=== PATIENT | male | born 1990 | race American Indian/Alaskan Native ===

== ENCOUNTER 2019-08-31 18:03 | Emergency (ER) | payer SELFPAY ==
[2019-08-31 18:38] LABS: Basophils % (Auto) 0.5 % (0.0-1.8); Eosinophils # (Auto) 0.1 K/mm3 (0.0-0.4); Hematocrit 40.9 % (35.5-45.6); Hemoglobin 13.5 gm/dl (11.8-15.2); Lymphocytes # (Auto) 2.1 K/mm3 (1.2-5.4); Lymphocytes % (Auto) 28.2 % (13.4-35.0); Mean Corpuscular HGB Conc 33 % (32-34); Mean Corpuscular Volume 84 fl (84-94); Monocytes # (Auto) 1.1 K/mm3 (0.0-0.8); Monocytes % (Auto) 14.7 % (0.0-7.3); Platelet Count 172 K/mm3 (140-440); Red Blood Count 4.85 M/mm3 (3.65-5.03); Red Cell Distribution Width 15.3 % (13.2-15.2)
[2019-08-31 18:58] LABS: Bacteria,Urine 3+ /HPF (Negative); Bilirubin,Urine NEG (Negative); Blood,Urine NEG (Negative); Color,Urine Yellow (Yellow); Mucus,Urine 3+ /HPF; Sperm,Urine 1+ /HPF (NP)
[2019-08-31 18:58] LABS: Alanine Aminotransferase 34 units/L (7-56); Albumin 4.9 g/dL (3.9-5); BUN/Creatinine Ratio 21; Blood Urea Nitrogen 30 mg/dL (9-20); Calcium 10.6 mg/dL (8.4-10.2); Hemolysis Index 25
[2019-08-31 19:01] LABS: Cocaine Screen,Urine PRESUMPTIVE NEGATIVE; Methadone Screen,Urine PRESUMPTIVE NEGATIVE; Opiate Screen,Urine PRESUMPTIVE NEGATIVE
[2019-08-31] MEDS ORDERED: SODIUM CHLORIDE 0.9% 1000 ML 1,000 ML IV ONE ×2 (19:12→19:31)
--- NOTE | 2019-08-31 19:14 | Emergency Department Report ---
HPI <ELENA MORTON - Last Filed: 09/01/19 12:42> - HPI HPI: 28-year-old male presents to the emergency department via EMS from home with excited delirium and altered mental status. The patient's roommate came home and found him altered, banging his head against the wall. The roommate told EMS that he has been doing a lot of meth lately. The patient is unknown to me and apparently has never been to this emergency department previously. He received 10 mg of Versed, 5 mg of Haldol and 50 mg of Benadryl prior to arrival and presents sedated. I later was able to speak with the patient's mother and his roommate. The roommate says that he came home and found him banging his head against the wall and was not redirectable. He says that the patient does use illicit drugs, but oftentimes the patient will wake up in the morning and be showing some signs of responding to voices or "talking out of his head." <SKYLAR BACON S - Last Filed: 09/01/19 18:06> - General Chief Complaint: Psych Time Seen by Provider: 08/31/19 18:13 ED Past Medical Hx <ELENA MORTON - Last Filed: 09/01/19 12:42> - Past Medical History Additional medical history: unknown - Surgical History Past Surgical History?: No Additional Surgical History: unknown - Social History Smoking Status: Unknown if ever smoked Substance Use Type: Cocaine, Methamphetamines <SKYLAR BACON - Last Filed: 09/01/19 18:06> - Medications Home Medications: Home Medications Medication Instructions Recorded Confirmed Last Taken Type Divalproex [June PUENTES] 125 mg PO BID #60 tablet 09/01/19 Unknown Rx ED Review of Systems ROS: Stated complaint: EXCITED DELERIUM Other details as noted in HPI <ELENA MORTON - Last Filed: 09/01/19 12:42> ROS: Stated complaint: EXCITED DELERIUM Other details as noted in HPI Comment: Unobtainable due to pts medical conditions <SKYLAR BACON - Last Filed: 09/01/19 18:06> Physical Exam - Physical Exam Vital Signs: Vital Signs 08/31/19 08/31/19 08/31/19 18:09 18:16 18:21 Temperature 98.9 F Pulse Rate 124 H 121 H 124 H Respiratory 26 H 25 H 14 Rate Blood Pressure 92/49 92/49 Blood Pressure [Left] O2 Sat by Pulse 96 Oximetry 08/31/19 08/31/19 08/31/19 18:27 18:30 19:02 Temperature Pulse Rate 115 H 104 H Respiratory 14 24 10 L Rate Blood Pressure 98/61 100/56 Blood Pressure [Left] O2 Sat by Pulse 96 99 Oximetry 08/31/19 08/31/19 08/31/19 20:00 21:00 22:00 Temperature Pulse Rate 106 H 99 H 97 H Respiratory 22 17 14 Rate Blood Pressure 92/58 105/65 97/60 Blood Pressure [Left] O2 Sat by Pulse 100 100 100 Oximetry 09/01/19 09/01/19 09/01/19 00:00 01:00 03:00 Temperature Pulse Rate 85 74 63 Respiratory 16 15 16 Rate Blood Pressure 92/51 90/49 93/51 Blood Pressure [Left] O2 Sat by Pulse 100 100 100 Oximetry 09/01/19 09/01/19 09/01/19 04:00 05:00 06:00 Temperature Pulse Rate 66 64 61 Respiratory 16 13 16 Rate Blood Pressure 108/48 90/49 95/47 Blood Pressure [Left] O2 Sat by Pulse 100 100 100 Oximetry 09/01/19 09/01/19 09/01/19 07:28 08:00 08:30 Temperature Pulse Rate 83 71 71 Respiratory 10 L 17 17 Rate Blood Pressure Blood Pressure 90/59 101/48 106/56 [Left] O2 Sat by Pulse 100 100 100 Oximetry 09/01/19 09/01/19 09/01/19 09:36 10:17 10:35 Temperature Pulse Rate 72 72 66 Respiratory 17 16 14 Rate Blood Pressure Blood Pressure 94/50 118/67 100/44 [Left] O2 Sat by Pulse 100 99 97 Oximetry 09/01/19 09/01/19 10:59 11:23 Temperature Pulse Rate 70 72 Respiratory 17 17 Rate Blood Pressure Blood Pressure 100/44 109/67 [Left] O2 Sat by Pulse 98 Oximetry <ELENA MORTON - Last Filed: 09/01/19 12:42> - Physical Exam Vital Signs: Vital Signs 08/31/19 08/31/19 08/31/19 18:09 18:16 18:21 Temperature 98.9 F Pulse Rate 124 H 121 H 124 H Respiratory 26 H 25 H 14 Rate Blood Pressure 92/49 92/49 O2 Sat by Pulse 96 Oximetry 08/31/19 08/31/19 18:27 18:30 Temperature Pulse Rate 115 H Respiratory 14 24 Rate Blood Pressure 98/61 O2 Sat by Pulse 96 Oximetry Physical Exam: GENERAL: Patient is sedated. HENT: Normocephalic. Atraumatic. Patient has moist mucous membranes. EYES: Pupils equal reactive to light bilaterally. NECK: Supple. Trachea is midline. CHEST/LUNGS: Clear to auscultation. There is no respiratory distress noted. HEART/CARDIOVASCULAR: Regular. There is no tachycardia. There is no murmur. ABDOMEN: Abdomen is soft, nontender. Patient has normal bowel sounds. There is no abdominal distention. SKIN: Skin is warm and dry. NEURO: Patient is sedated and are very sleepy. He is arousable but otherwise is not following commands. Withdraws from painful stimuli. MUSCULOSKELETAL: There is no obvious deformity. There is no evidence of acute injury. <SKYLAR BACON S - Last Filed: 09/01/19 18:06> ED Course Vital Signs 08/31/19 08/31/19 08/31/19 18:09 18:16 18:21 Temperature 98.9 F Pulse Rate 124 H 121 H 124 H Respiratory 26 H 25 H 14 Rate Blood Pressure 92/49 92/49 Blood Pressure [Left] O2 Sat by Pulse 96 Oximetry 08/31/19 08/31/19 08/31/19 18:27 18:30 19:02 Temperature Pulse Rate 115 H 104 H Respiratory 14 24 10 L Rate Blood Pressure 98/61 100/56 Blood Pressure [Left] O2 Sat by Pulse 96 99 Oximetry 08/31/19 08/31/19 08/31/19 20:00 21:00 22:00 Temperature Pulse Rate 106 H 99 H 97 H Respiratory 22 17 14 Rate Blood Pressure 92/58 105/65 97/60 Blood Pressure [Left] O2 Sat by Pulse 100 100 100 Oximetry 09/01/19 09/01/19 09/01/19 00:00 01:00 03:00 Temperature Pulse Rate 85 74 63 Respiratory 16 15 16 Rate Blood Pressure 92/51 90/49 93/51 Blood Pressure [Left] O2 Sat by Pulse 100 100 100 Oximetry 09/01/19 09/01/19 09/01/19 04:00 05:00 06:00 Temperature Pulse Rate 66 64 61 Respiratory 16 13 16 Rate Blood Pressure 108/48 90/49 95/47 Blood Pressure [Left] O2 Sat by Pulse 100 100 100 Oximetry 09/01/19 09/01/19 09/01/19 07:28 08:00 08:30 Temperature Pulse Rate 83 71 71 Respiratory 10 L 17 17 Rate Blood Pressure Blood Pressure 90/59 101/48 106/56 [Left] O2 Sat by Pulse 100 100 100 Oximetry 09/01/19 09/01/19 09/01/19 09:36 10:17 10:35 Temperature Pulse Rate 72 72 66 Respiratory 17 16 14 Rate Blood Pressure Blood Pressure 94/50 118/67 100/44 [Left] O2 Sat by Pulse 100 99 97 Oximetry 09/01/19 09/01/19 10:59 11:23 Temperature Pulse Rate 70 72 Respiratory 17 17 Rate Blood Pressure Blood Pressure 100/44 109/67 [Left] O2 Sat by Pulse 98 Oximetry <ELENA MORTON - Last Filed: 09/01/19 12:42> Vital Signs 08/31/19 08/31/19 08/31/19 18:09 18:16 18:21 Temperature 98.9 F Pulse Rate 124 H 121 H 124 H Respiratory 26 H 25 H 14 Rate Blood Pressure 92/49 92/49 O2 Sat by Pulse 96 Oximetry 08/31/19 08/31/19 18:27 18:30 Temperature Pulse Rate 115 H Respiratory 14 24 Rate Blood Pressure 98/61 O2 Sat by Pulse 96 Oximetry <SKYLAR BACON - Last Filed: 09/01/19 18:06> ED Medical Decision Making - Lab Data Result diagrams: 08/31/19 18:11 08/31/19 18:11 - Medical Decision Making I spoke with our mental health team sifter operator. Clinical impression: Delirium due to polysubstance abuse. Discharged home with outpatient resources. <ELENA MORTON - Last Filed: 09/01/19 12:42> - Lab Data Result diagrams: 08/31/19 18:11 08/31/19 18:11 - EKG Data -: EKG Interpreted by Ok EKG shows normal: sinus rhythm (PVCs), axis, intervals, QRS complexes (Early repolarization), ST-T waves (T wave inversions to the inferior and lateral leads) Rate: tachycardia (116 bpm) - EKG Data When compared to previous EKG there are: previous EKG unavailable Interpretation: other (Sinus tachycardia, PVCs, T wave inversions to the inferior and lateral leads, early repolarization) - Radiology Data Radiology results: report reviewed, image reviewed interpreted by me: X-ray of the right shoulder does not show any fracture, dislocation, or any acute process. NONENHANCED CT SCAN OF THE HEAD: INDICATION / CLINICAL INFORMATION: 28 years Male; ams, combative, drug abuse. TECHNIQUE: Routine CT head without contrast. All CT scans at this location are performed using CT dose reduction for ALARA by means of automated exposure control. COMPARISON: CT scan of the head from April 19, 2019 FINDINGS: BRAIN / INTRACRANIAL CONTENTS: No acute hemorrhage, mass effect, midline shift, hydrocephalus, or acute, large territorial infarct. No chronic infarct or focal atrophy. Considering the age, height convexity cortical sulci are mildly prominent. CRANIOCERVICAL JUNCTION: No significant abnormality. ORBITS: No significant abnormality of visualized orbits. SINUSES / MASTOIDS: No significant abnormality of the visualized paranasal sinuses or mastoid air cells. ADDITIONAL FINDINGS: None. IMPRESSION: No acute parenchymal lesion - Medical Decision Making This patient was brought in as an excited delirium. The patient already been sedated with Benadryl, Haldol and Versed prior to arrival in the emergency department and therefore I was unable to witness any of the patient's delirium or psychosis. However, based on the roommates information and EMS information, the patient does appear to need psychiatric evaluation and possible rehabilitation. This could be drug-induced psychosis. However, it is always possible that the patient has undiagnosed underlying psychiatric illness such as schizophrenia or bipolar disorder. Patient's labs are mostly unremarkable except for a CK level of about 1970 but this has peaked and started to trend down after 2 L of IV fluid resuscitation. Urine drug screen is positive for methamphetamines, benzodiazepines and marijuana. His vital signs been stable throughout his ED course. The patient will remain in the emergency department overnight until the sedation and the illicit drugs have worn off. He will then be evaluated by the psychiatric assessment team. - Differential Diagnosis Schizophrenia, bipolar disorder, schizoaffective, substance abuse <SKYLAR BACON - Last Filed: 09/01/19 18:06> Critical care attestation.: If time is entered above; I have spent that time in minutes in the direct care of this critically ill patient, excluding procedure time. <ELENA MORTON - Last Filed: 09/01/19 12:42> Critical Care Time: No Critical care attestation.: If time is entered above; I have spent that time in minutes in the direct care of this critically ill patient, excluding procedure time. <SKYLAR BACON S - Last Filed: 09/01/19 18:06> ED Disposition Is pt being admited?: No Does the pt Need Aspirin: No <ELENA MORTON - Last Filed: 09/01/19 12:42> Is pt being admited?: No Time of Disposition: 01:49 <SKYLAR BACON - Last Filed: 09/01/19 18:06> Clinical Impression: Acute psychosis, Polysubstance abuse Disposition: DC- TO HOME OR SELFCARE Condition: Stable Prescriptions: Divalproex Dr [DepaKOTE DR] 125 mg PO BID #60 tablet Referrals: PRIMARY CARE, [Primary Care Provider] - 3-5 Days
[2019-08-31 19:15] LABS: Amphetamine Screen,Urine PRESUMPTIVE POSITIVE; Benzodiazepines Screen,Urine PRESUMPTIVE POSITIVE; Cannabinoid Screen,Urine PRESUMPTIVE POSITIVE
--- NOTE | 2019-08-31 20:01 | XRay Report ---
RIGHT SHOULDER 3 VIEWS INDICATION / CLINICAL INFORMATION: right shoulder pain COMPARISON: None available. FINDINGS: BONES / JOINT(S): No acute fracture or subluxation. Mild DJD at the glenohumeral joint. SOFT TISSUES: No significant abnormality. ADDITIONAL FINDINGS: None. Signer Name: Pedrito Phipps MD Signed: 08/31/2019 7:57 PM Workstation Name: [id number]
--- NOTE | 2019-08-31 20:47 | Cat Scan Report ---
NONENHANCED CT SCAN OF THE HEAD: INDICATION / CLINICAL INFORMATION: 28 years Male; ams, combative, drug abuse. TECHNIQUE: Routine CT head without contrast. All CT scans at this location are performed using CT dos e reduction for ALARA by means of automated exposure control. COMPARISON: CT scan of the head from April 19, 2019 FINDINGS: BRAIN / INTRACRANIAL CONTENTS: No acute hemorrhage, mass effect, midline shift, hydrocephalus, or ac michelle, large territorial infarct. No chronic infarct or focal atrophy. Considering the age, height conv exity cortical sulci are mildly prominent. CRANIOCERVICAL JUNCTION: No significant abnormality. ORBITS: No significant abnormality of visualized orbits. SINUSES / MASTOIDS: No significant abnormality of the visualized paranasal sinuses or mastoid air solitario ls. ADDITIONAL FINDINGS: None. IMPRESSION: No acute parenchymal lesion CT findings remain unchanged since April 19, 2019. Signer Name: Simone Jones MD Signed: 08/31/2019 8:43 PM Workstation Name: [id number]
[2019-09-01] MEDS ORDERED: SODIUM CHLORIDE 0.9% 1000 ML 1,000 ML IV ONE (02:20)
[2019-09-01] MEDS ORDERED: ACETAMINOPHEN 500 MG TAB PO ONE (11:06)
--- NOTE | 2019-09-01 11:17 | Consultation ---
History of Present Illness - Reason for Consult Consult date: 09/01/19 Reason for consult: AMS, drug abuse - History of Present Psychiatric Illness Juan Daniel Keenan is a 28y/o male patient who says "friend called the police because I needed psychological help." He says "I guess my mind wasn't right at the time." The patient is a/o x 3. He is dressed appropriately. He is calm and cooperative. He makes intermittent eye contact. When asked how he was feeling, he replied "pretty good now. Neck hurting." The patient denies any psychiatric history in the past or being on any psychiatric medications. He also denies any drug use, although his UDS was positive for amphetamines, THC, and benzos." He denies SI/HI or any thoughts of self harm or wanting to hurt anyone else. He also denies being suicidal or homicidal in the past. The patient asks, "why do people keep asking me that. I've never told anyone I wanted to kill myself." The patient also denies any fear or feelings of endangerment. He denies hallucinations of any kind. He says he slept "good" and his appetite is "good." When asking the patient if he had any questions, he replied, "Can I get a pain pill. My neck is hurting." PAST PSYCHIATRIC HISTORY: Diagnoses: Denies Suicide attempts or Self-harm behavior: Denies Prior psychiatric hospitalizations: Denies Substance Abuse history: Denies, despite UDS being positive Previous psychiatric medications tried: None Outpatient treatment: Denies PAST MEDICAL HISTORY: None reported Family Psychiatric History None reported or documented SOCIAL HISTORY Marital Status: Single Living Arrangements: With firend Employment Status: Unemployed Access to guns/weapons: Denies Education: Some college History of Abuse: Denies ROS: Constitutional: Negative for weight loss ENT: Negative for stridor Respiratory: Negative for cough or hemoptysis All other systems reviewed and are negative MENTAL STATUS General Appearance: Dressed appropriately Behavior: Calm and cooperative Mood: "pretty good" Affect: Congruent with stated mood Thought Process: Goal-directed Speech: Normal tone and pace Suicidal Ideation: Denies Homicidal Ideation: Denies Hallucinations: Denies Delusions: None elicited Insight and Judgment: Limited Memory/Cognition: Fair Diagnoses: Substance Induced Mood Disorder Plan D/c 1013 June PUENTES 125mg po BID Risks, benefits and alternatives of medications discussed with the patient, questions answered and consent obtained from patient. PSYCHOTHERAPY: Supportive psychotherapy provided MEDICAL: Per primary team DELIRIUM PRECAUTIONS: Please re-orient patient frequently, keep lights on during the day, and minimize benzodiazepines and opiates as these medications could worsen patient's confusion. BOTTLING SUPERVISOR: Defer to primary DISPOSITION: The patient does not meet the requirement for acute inpatient psychiatric hospitalization at this time. He consistently denies any SI/HI or any harmful thoughts or any hallucinations. He also denies any feelings of fear or endangerment. The patient may discharge home once medically cleared The patient understands that if SI/HI are to arise he is to seek assistance, including but not limited to the suicide crisis hotline, 911 and ER. The is patient to follow up with outpatient psychiatry or primary in 7 to 14 days The legal investigator to give the patient outpatient resources to establish outpatient psychiatry, cognitive behavior therapy and drug rehab programs. The patient should abstain from illicit drug use and alcohol use The treatment plan, including medication benefits and side effects were explained to the patient. He verbalizes understanding and agreement of plan. Will sign off. Please call with any questions or concerns. Thank you for this consult. Medications and Allergies Allergies Allergy/AdvReac Type Severity Reaction Status Date / Time No Known Allergies Allergy Unverified 09/01/19 11:18 Home Medications Medication Instructions Recorded Confirmed Last Taken Type Divalproex [June PUENTES] 125 mg PO BID #60 tablet 09/01/19 Unknown Rx Mental Status Exam - Vital signs Last Vital Signs Temp 98.9 F 08/31/19 18:21 Pulse 70 09/01/19 10:59 Resp 17 09/01/19 10:59 BP 100/44 09/01/19 10:59 Pulse Ox 98 09/01/19 10:59 Results Result Diagrams: 08/31/19 18:11 08/31/19 18:11 Abnormal lab results 08/31/19 08/31/19 08/31/19 Range/Units 18:11 18:11 18:20 RDW 15.3 H (13.2-15.2) % Victoria % (Auto) 14.7 H (0.0-7.3) % Victoria # 1.1 H (0.0-0.8) K/mm3 Carbon Dioxide 20 L (22-30) mmol/L BUN 30 H (9-20) mg/dL Calcium 10.6 H (8.4-10.2) mg/dL AST 62 H (5-40) units/L Total Creatine Kinase (55-170) units/L Ur Specific [place] (1.003-1.030) Salicylates < 0.3 L (2.8-20.0) mg/dL Acetaminophen (10.0-30.0) ug/mL 08/31/19 08/31/19 08/31/19 Range/Units 18:20 18:20 18:30 RDW (13.2-15.2) % [place] % (Auto) (0.0-7.3) % [place] # (0.0-0.8) K/mm3 Carbon Dioxide (22-30) mmol/L BUN (9-20) mg/dL Calcium (8.4-10.2) mg/dL AST (5-40) units/L Total Creatine Kinase 1970 H (55-170) units/L Ur Specific [place] 1.033 H (1.003-1.030) Salicylates (2.8-20.0) mg/dL Acetaminophen < 5.0 L (10.0-30.0) ug/mL 08/31/19 Range/Units 22:47 RDW (13.2-15.2) % [place] % (Auto) (0.0-7.3) % [place] # (0.0-0.8) K/mm3 Carbon Dioxide (22-30) mmol/L BUN (9-20) mg/dL Calcium (8.4-10.2) mg/dL AST (5-40) units/L Total Creatine Kinase 1836 H (55-170) units/L Ur Specific [place] (1.003-1.030) Salicylates (2.8-20.0) mg/dL Acetaminophen (10.0-30.0) ug/mL All other labs normal.
[2019-09-01 11:24] VITALS: BP 109/67
== END 2019-09-01 12:58 | disposition home or self-care (01) ==
LOC: ED 18:03
DX: F23 Brief psychotic disorder (principal); F19.10 Other psychoactive substance abuse, uncomplicated
CPT/HCPCS: 36415; 70450; 73030; 80053; 80307; 81001; 82550; 85025; 93005; 93010; 96360; 96361; 99285; J7030; 80320; G0480